=== PATIENT | female | born 1960 | race Caucasian/White ===

== ENCOUNTER → 2016-09-09 | Outpatient (CLI) | payer MEDICARE, MEDICAID ==
[~2016-09-09] MED LIST: ALBU8.5H3 INH; AZIT500T4 PO; BREO; CEFD300C2 PO; DIVA500T17 PO; DIVA500T2 PO; ENOX100S4 SQ; ESCI10TA PO; ESCI20TA PO; FAMO20TA7 PO; HYDR25CA94 PO; HYDR25TA11 PO; IPRA3AMP NPPB; LISI-167 PO; LURA120T PO; METF100010 PO; METF500T4 PO; PRED5TAB PO; QUET100T PO; SENN1TAB7 NG; WARF2.5T PO; WARF5TAB PO; WARF7.5T6 PO-COUM
== END | disposition home or self-care (01) ==
LOC: CFH 10:15
PROVIDERS: ATTEND Nurse Practitioner Family
DX: R94.4 Abnormal results of kidney function studies (principal)
CPT/HCPCS: 76770

== ENCOUNTER 2016-10-09 19:46 | Emergency (ER) | payer MEDICARE, MEDICAID ==
[~2016-10-09] VITALS: Ht 157.5 cm; Wt 107.4 kg
[~2016-10-09 19:46] MED LIST changes: -AZIT500T4 PO; +AZIT500T77 PO; -CEFD300C2 PO; +CEFD300C37 PO
[2016-10-09] MEDS ORDERED: DIVA125C PO (20:18)
[2016-10-09] MEDS ORDERED: ATOR20TA PO (20:18)
[2016-10-09] MEDS ORDERED: FLUT1AER PO (20:18)
[2016-10-09] MEDS ORDERED: TRAM50TA2 PO (20:18)
[2016-10-09] MEDS ORDERED: METF500T4 PO (20:18)
[2016-10-09 21:55] VITALS: BP 156/76
== END 2016-10-09 21:57 | disposition home or self-care (01) ==
LOC: ED 21:50
DX: I10 Essential (primary) hypertension (principal); E11.9 Type 2 diabetes mellitus without complications
CPT/HCPCS: 71010; 99283

== ENCOUNTER → 2017-06-11 | Outpatient (CLI) | payer MEDICARE, MEDICAID ==
[~2017-06-11] MED LIST changes: -ALBU8.5H3 INH; +ALBU8.5H8 INH; +ATOR20TA PO; +AZIT500T5 PO; -AZIT500T77 PO; +DIVA125C PO; +FLUT1AER PO; +TRAM50TA2 PO
== END ==
LOC: CFH 13:04
PROVIDERS: ATTEND Nurse Practitioner Family
DX: M17.12 Unilateral primary osteoarthritis, left knee (principal)

== ENCOUNTER → 2017-06-23 | Outpatient (CLI) | payer MEDICARE, MEDICAID | END | disposition home or self-care (01) | LOC: CFH 09:43 | PROVIDERS: ATTEND Internal Medicine Critical Care Medicine | DX: Z12.2 Encounter for screening for malignant neoplasm of respiratory organs (principal); R91.8 Other nonspecific abnormal finding of lung field; I25.10 Atherosclerotic heart disease of native coronary artery without angina pectoris; I70.0 Atherosclerosis of aorta; F17.210 Nicotine dependence, cigarettes, uncomplicated | CPT/HCPCS: G0297 ==

== ENCOUNTER → 2017-07-06 | Outpatient (CLI) | payer MEDICARE, MEDICAID | END | disposition home or self-care (01) | LOC: CFH 10:18 | PROVIDERS: ATTEND Nurse Practitioner Family | DX: J98.4 Other disorders of lung (principal); J40 Bronchitis, not specified as acute or chronic; J44.9 Chronic obstructive pulmonary disease, unspecified | CPT/HCPCS: 71046 ==

== ENCOUNTER → 2017-07-29 | Outpatient (CLI) | payer MEDICARE, MEDICAID | LOC: CFH 11:42 | PROVIDERS: ATTEND Nurse Practitioner Family | DX: J18.1 Lobar pneumonia, unspecified organism (principal); R06.2 Wheezing; R09.02 Hypoxemia | CPT/HCPCS: 71046 ==

== ENCOUNTER → 2017-11-03 | Outpatient (CLI) | payer MEDICARE, MEDICAID ==
[~2017-11-03] MED LIST changes: +WARF7.5T46 PO-COUM; -WARF7.5T6 PO-COUM
== END | disposition home or self-care (01) ==
LOC: CFH 09:59
PROVIDERS: ATTEND Nurse Practitioner Family
DX: R91.8 Other nonspecific abnormal finding of lung field (principal)
CPT/HCPCS: 71250

== ENCOUNTER → 2018-03-04 | Outpatient (CLI) | payer MEDICARE, MEDICAID ==
[~2018-03-04] MED LIST changes: -DIVA125C PO; +DIVA125C2 PO; -IPRA3AMP NPPB; +IPRA3AMP30 NPPB; +METF500T17 PO; -METF500T4 PO; -SENN1TAB7 NG; +SENN1TAB8 NG
== END | disposition home or self-care (01) ==
LOC: CFH 08:26
PROVIDERS: ATTEND Psychiatry & Neurology Neurology
DX: G31.9 Degenerative disease of nervous system, unspecified (principal); I63.9 Cerebral infarction, unspecified; R90.82 White matter disease, unspecified; R41.3 Other amnesia; J44.9 Chronic obstructive pulmonary disease, unspecified; E11.9 Type 2 diabetes mellitus without complications; Z86.73 Personal history of transient ischemic attack (TIA), and cerebral infarction without residual deficits; Z86.718 Personal history of other venous thrombosis and embolism
CPT/HCPCS: 70551

== ENCOUNTER → 2018-06-23 | Outpatient (CLI) | payer MEDICARE, MEDICAID | END | disposition home or self-care (01) | LOC: CFH 10:02 | PROVIDERS: ATTEND Surgery | DX: N18.4 Chronic kidney disease, stage 4 (severe) (principal) | CPT/HCPCS: 76770 ==

== ENCOUNTER → 2018-10-11 | Outpatient (CLI) | payer MEDICARE, MEDICAID ==
[~2018-10-11] MED LIST changes: +SENN-177 NG; -SENN1TAB8 NG
== END | disposition home or self-care (01) ==
LOC: CFH 13:57
PROVIDERS: ATTEND Licensed Practical Nurse
DX: Z12.31 Encounter for screening mammogram for malignant neoplasm of breast (principal)
CPT/HCPCS: 77067

== ENCOUNTER 2020-08-25 08:56 | Emergency (ER) | payer MEDICARE, MEDICAID ==
[~2020-08-25] VITALS: Ht 157.5 cm; Wt 117.1 kg
[~2020-08-25 08:56] MED LIST changes: +AZIT500T10 PO; -AZIT500T5 PO; -ESCI10TA PO; +ESCI10TA97 PO; -ESCI20TA PO; +ESCI20TA8 PO; +HYDR-826 PO; -HYDR25TA11 PO; -WARF2.5T PO; +WARF2.5T2 PO; -WARF5TAB PO; +WARF5TAB2 PO
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
--- NOTE | 2020-08-25 09:12 | NUR ---
JUSTINE RODRIGUEZ AT BEDSIDE FOR EVAL.
[2020-08-25] MEDS ORDERED: HYDROcodone/APAP 5/325 TABLET ONE (09:23)
[2020-08-25] MEDS ORDERED: HYDROcodone/APAP 5/325 TABLET PO PRN (09:30)
[2020-08-25 10:56] VITALS: BP 141/78
== END 2020-08-25 10:58 | disposition home or self-care (01) ==
LOC: ED 09:53
DX: M17.32 Unilateral post-traumatic osteoarthritis, left knee (principal); M25.462 Effusion, left knee; F17.210 Nicotine dependence, cigarettes, uncomplicated; E11.9 Type 2 diabetes mellitus without complications; J44.9 Chronic obstructive pulmonary disease, unspecified; I10 Essential (primary) hypertension; Z86.718 Personal history of other venous thrombosis and embolism; Z86.73 Personal history of transient ischemic attack (TIA), and cerebral infarction without residual deficits; Z90.89 Acquired absence of other organs
CPT/HCPCS: 99283; 99406

== ENCOUNTER → 2020-11-26 | Outpatient (CLI) | payer MEDICARE, MEDICAID | END | disposition home or self-care (01) | LOC: CFH 11:28 | PROVIDERS: ATTEND Nurse Practitioner Family | DX: Z12.31 Encounter for screening mammogram for malignant neoplasm of breast (principal); N95.9 Unspecified menopausal and perimenopausal disorder; M85.80 Other specified disorders of bone density and structure, unspecified site; N64.89 Other specified disorders of breast | CPT/HCPCS: 77063; 77067; 77080 ==

== ENCOUNTER → 2020-12-05 | Outpatient (CLI) | payer MEDICARE, MEDICAID | END | disposition home or self-care (01) | LOC: CFH 06:49 | PROVIDERS: ATTEND Nurse Practitioner Family | DX: N63.20 Unspecified lump in the left breast, unspecified quadrant (principal); R92.8 Other abnormal and inconclusive findings on diagnostic imaging of breast | CPT/HCPCS: 76642; 77065 ==

== ENCOUNTER → 2020-12-20 | Outpatient (CLI) | payer MEDICARE, MEDICAID ==
[~2020-12-20] MED LIST changes: +LIDOCAINE 1%, 20ML ONE; +LIDOCAINE 1%-EPI 1:100K, 20ML ONE; +SODIUM BICARBONATE 4.2%, 5ML ONE
== END | disposition home or self-care (01) ==
LOC: CFH 07:03
PROVIDERS: ATTEND Nurse Practitioner Family
DX: N63.25 Unspecified lump in the left breast, overlapping quadrants (principal); N60.32 Fibrosclerosis of left breast
CPT/HCPCS: 19083; 88305; 77065

== ENCOUNTER 2021-01-11 08:06 | Emergency (ER) | payer MEDICARE, MEDICAID ==
[~2021-01-11] VITALS: Ht 157.5 cm; Wt 116.0 kg
[~2021-01-11 08:06] MED LIST changes: -LIDOCAINE 1%, 20ML ONE; -LIDOCAINE 1%-EPI 1:100K, 20ML ONE; -QUET100T PO; +QUET100T2 PO; -SODIUM BICARBONATE 4.2%, 5ML ONE
[2021-01-11 08:09] VITALS: BP 161/85
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
[2021-01-11] MEDS ORDERED: NAPROXEN 500 MG TABLET ONE (09:45)
[2021-01-11] MEDS ORDERED: NAPROXEN 500 MG TABLET PO ONE (10:00)
== END 2021-01-11 10:14 | disposition home or self-care (01) ==
LOC: ED 08:27
DX: M13.131 Monoarthritis, not elsewhere classified, right wrist (principal); I10 Essential (primary) hypertension; E11.9 Type 2 diabetes mellitus without complications; J44.9 Chronic obstructive pulmonary disease, unspecified; Z86.73 Personal history of transient ischemic attack (TIA), and cerebral infarction without residual deficits; Z90.89 Acquired absence of other organs
CPT/HCPCS: 29125; 99283

== ENCOUNTER 2021-02-20 14:13 | Emergency (ER) | payer MEDICARE, MEDICAID ==
[~2021-02-20] VITALS: Ht 157.5 cm; Wt 116.2 kg
[2021-02-20 14:26] VITALS: BP 140/91
--- NOTE | 2021-02-20 14:31 | NUR ---
dollyman: EKG done in triage
[2021-02-20 15:21] LABS: BASOPHILS % (AUTO) 1 % (0-1); EOSINOPHILS % (AUTO) 6 % (1-7); LYMPHOCYTES % (AUTO) 30 % (22-44); MEAN CORPUSCULAR HEMOGLOBIN 32.3 pg (27.0-34.8); MEAN CORPUSCULAR HGB CONC 34.1 g/dL (32.4-35.8); MEAN PLATELET VOLUME 8.2 fL (7.4-10.4); MONOCYTES % (AUTO) 10 % (2-9); NEUTROPHILS % (AUTO) 53 % (42-75); PLATELET COUNT 173 x10^3/uL (130-400); RED BLOOD COUNT 4.55 x10^6/uL (3.82-5.3); RED CELL DISTRIBUTION WIDTH 13.3 % (9.6-15.2)
[2021-02-20 15:35] LABS: ALANINE AMINOTRANSFERASE 45 U/L (12-78); ALBUMIN 3.5 g/dL (3.4-5.0); ANION GAP 6 mmol/L (5-15); CALCIUM 8.9 mg/dL (8.5-10.1); CHLORIDE 110 mmol/L (98-107); CREATININE 1.43 mg/dL (0.55-1.02)
[2021-02-20 15:39] LABS: ALKALINE PHOSPHATASE 89 U/L (45-117); BILIRUBIN,TOTAL 0.4 mg/dL (0.2-1.0); TOTAL PROTEIN 7.1 g/dL (6.4-8.2); TROPONIN I < 0.015 ng/mL (0.000-0.045)
--- NOTE | 2021-02-20 16:52 | NUR ---
SCOUTX1
--- NOTE | 2021-02-20 17:31 | NUR ---
NILX2
--- NOTE | 2021-02-20 17:45 | NUR ---
nilx3
== END 2021-02-20 17:47 | disposition left against medical advice (07) ==
LOC: ED 14:13
DX: R07.89 Other chest pain (principal)
CPT/HCPCS: 36415; 71045; 80053; 84484; 85025; 93005; 99285